=== PATIENT | female | born 1970 | race Caucasian/White ===

== ENCOUNTER → 2018-03-21 | Outpatient (CLI) | payer OTHER ==
--- NOTE | 2018-03-21 15:49 | RAD ---
DATE: 03/21/2018 EXAM: DIGITAL DIAGNOSTIC BILATERAL HISTORY: First mammogram. Pain in the left lower chest wall/breast. COMPARISON: None This study was interpreted with the benefit of Computerized Aided Detection (CAD). FINDINGS: Breast Density: DENSE The breast Parenchyma is dense, which could reduce the sensitivity of mammography. Breast parenchyma level density D.. The skin and nipples are within normal limits. No suspicious calcifications, spiculated mass or area of architectural distortion. IMPRESSION: No mammographic abnormality. BI-RADS CATEGORY: 1 NEGATIVE RECOMMENDED FOLLOW-UP: 12M 12 MONTH FOLLOW-UP PQRS compliance statement: Patient information was entered into a reminder system with a target due date for the next mammogram. Mammography is a sensitive method for finding small breast cancers, but it does not detect them all and is not a substitute for careful clinical examination. A negative mammogram does not negate a clinically suspicious finding and should not result in delay in biopsying a clinically suspicious abnormality. "Our facility is accredited by the [employer] Mammography Program." Indication: Lower left breast/chest wall pain Technique: Limited ultrasound of the left breast from 3:00 to 9:00 position. Medicine: Same day mammogram Findings: The skin as normal in thickness. No solid or cystic lesion seen in the interrogated lower left breast. Impression: No sonographic abnormality seen. Clinical correlation recommended.
--- NOTE | 2018-03-21 17:02 | RAD ---
Indication: Lower left breast/chest wall pain TECHNIQUE: Limited ultrasound of the left breast from 3:00-9:00 position. COMPARISON: Same day mammogram FINDINGS: The skin is normal in thickness. No solid or cystic lesion seen in the interrogated left lower breast. IMPRESSION: No sonographic abnormality seen. Clinical correlation for chest wall pain. Electronically signed by: Gordon Fisher DO (03/21/2018 4:59 PM) [facility]
== END | disposition home or self-care (01) ==
LOC: MAMMO 14:04
PROVIDERS: ATTEND Physician Assistant
DX: N64.4 Mastodynia (principal)
CPT/HCPCS: 76641; 77066